=== PATIENT | female | born 1945 | race Caucasian/White ===

== ENCOUNTER 2018-09-10 10:15 | Inpatient (IN) | payer OTHER ==
[2018-09-10] MEDS ORDERED: ASA81 MG (14:17)
[2018-09-10] MEDS ORDERED: EFFEXOR XR75 MG (14:17)
[2018-09-10] MEDS ORDERED: ZETIA10 MG (14:17)
[2018-09-10] MEDS ORDERED: NAMENDA10 MG (14:17)
[2018-09-10] MEDS ORDERED: ZANTAC150 MG (14:18)
[2018-09-22] MEDS ORDERED: PERCOCET 5-3251 EACH PO (08:56)
[2018-09-22] MEDS ORDERED: DUI500 PO (08:56)
[2018-09-22] MEDS ORDERED: ELIQUIS2.5 MG PO (08:56)
== END 2018-09-22 15:41 | DRG 470 ==
LOC: O/R 09-16 06:30 → SURH 09-16 08:15 → EDBD 09-16 10:15 → SURH 09-16 10:15 → SURG-SUITE 09-17 16:37 → SURH 09-18 16:17
PROVIDERS: Orthopaedic Surgery
PROC: 0SR90JZ Replacement of Right Hip Joint with Synthetic Substitute, Open Approach (ICD-10-PCS; principal; 2018-09-16 08:15)
PROC: 30233N1 Transfusion of Nonautologous Red Blood Cells into Peripheral Vein, Percutaneous Approach (ICD-10-PCS; 2018-09-21)
DX: M16.11 Unilateral primary osteoarthritis, right hip (principal); D62 Acute posthemorrhagic anemia; I67.82 Cerebral ischemia; M81.0 Age-related osteoporosis without current pathological fracture; M70.61 Trochanteric bursitis, right hip; H81.03 Meniere's disease, bilateral; E78.00 Pure hypercholesterolemia, unspecified; R50.82 Postprocedural fever; H91.8X3 Other specified hearing loss, bilateral

== ENCOUNTER 2018-12-18 10:20 | Inpatient (IN) | payer OTHER ==
[~2018-12-18] VITALS: Ht 157.5 cm; Wt 70.3 kg
[~2018-12-18 10:20] MED LIST: ASA81 MG; DUI500 PO; EFFEXOR XR75 MG; ELIQUIS2.5 MG PO; NAMENDA10 MG; PERCOCET 5-3251 EACH PO; ZANTAC150 MG; ZETIA10 MG
[2018-12-18] MEDS ORDERED: VITAMIN D310000 UNIT (10:28)
--- NOTE | 2018-12-18 10:30 | NUR ---
PACIENTE ALERTA Y ORIENTADA POR UMAIR ESFERAS QUIEN REFIERE DOLOR ABDOMINAL Y VOMITOS DESDE TARIK.
--- NOTE | 2018-12-18 11:26 | NUR ---
EVALUA PACIENTE Y ORDENA [place] MEDICO DEL CUAL SE ORIENTA PACIENTE Y FAMILIAR.PACIENTE REFIERE ENTENDER. SE COLECTAN MUESTRAS DE LABORATORIOS SE ROTULAN Y ENVIAN A LABORATORIO PARA ANALISIS. SE ADMINISTRAN MEDICAMENTOS LINDY ORDEN MEDICAMENTOS LINDY ORDEN MEDICA SIGUENDO MEDIDAS ASEPTICAS.
--- NOTE | 2018-12-18 16:07 | NUR ---
PACIENTE ALERTA Y ORIENTADA X3. EN OPAL CON BARANDAS ELEVADAS. IV FLUID PATENTE YLIBRE DE EDEMA Y ERITEMA. PENDIENTE VISITA DE DR. SHYLA GUERRA. SE MANTIENE BAJO OBSERVACION POR CAMBIOS SIGNIFICATIVOS.
[2018-12-26] MEDS ORDERED: CARAFATE1 GM PO (12:34)
[2018-12-26] MEDS ORDERED: POM (MEDICAMENTO EN PO (12:34)
[2018-12-26] MEDS ORDERED: GAS RELIEF125 MG PO (12:34)
[2018-12-26] MEDS ORDERED: NAMENDA10 MG PO (12:34)
[2018-12-26] MEDS ORDERED: PROTONIX40 MG PO (12:34)
[2018-12-26] MEDS ORDERED: ZANTAC150 MG PO (12:34)
== END 2018-12-26 13:27 | disposition home or self-care (01) | DRG 444 ==
LOC: ER 10:20 → MEDJ 19:06
PROVIDERS: ADMIT Internal Medicine
PROC: BW40ZZZ Ultrasonography of Abdomen (ICD-10-PCS; principal; 2018-12-18)
PROC: BF37YZZ Magnetic Resonance Imaging (MRI) of Pancreas using Other Contrast (ICD-10-PCS; 2018-12-18)
PROC: BW21Y0Z Computerized Tomography (CT Scan) of Abdomen and Pelvis using Other Contrast, Unenhanced and Enhanced (ICD-10-PCS; 2018-12-22)
DX: K80.70 Calculus of gallbladder and bile duct without cholecystitis without obstruction (principal); K85.10 Biliary acute pancreatitis without necrosis or infection; E86.0 Dehydration; E87.8 Other disorders of electrolyte and fluid balance, not elsewhere classified; K21.9 Gastro-esophageal reflux disease without esophagitis; E55.9 Vitamin D deficiency, unspecified; I99.8 Other disorder of circulatory system; H81.03 Meniere's disease, bilateral; Z91.011 Allergy to milk products; F01.50 Vascular dementia, unspecified severity, without behavioral disturbance, psychotic disturbance, mood disturbance, and anxiety; E78.2 Mixed hyperlipidemia; F32.89 Other specified depressive episodes; M15.4 Erosive (osteo)arthritis; Z96.641 Presence of right artificial hip joint; K76.0 Fatty (change of) liver, not elsewhere classified; T40.694A Poisoning by other narcotics, undetermined, initial encounter; K59.03 Drug induced constipation; F41.8 Other specified anxiety disorders

== ENCOUNTER → 2019-02-06 | Day surgery (SDC) | payer OTHER ==
[~2019-02-06] MED LIST changes: +CARAFATE1 GM PO; +EFFEXOR XR75 MG PO; +GAS RELIEF125 MG PO; +NAMENDA10 MG PO; +POM (MEDICAMENTO EN PO; +PROTONIX40 MG PO; +VITAMIN D310000 UNIT; +ZANTAC150 MG PO
== END | disposition home or self-care (01) ==
LOC: CIR.AMB 04:00
DX: K80.10 Calculus of gallbladder with chronic cholecystitis without obstruction (principal)